=== PATIENT | male | born 1945 | race Caucasian/White ===

== ENCOUNTER → 2017-01-26 | Outpatient (CLI) | payer BC, OTHER ==
[2017-01-26 17:54] LABS: BLOOD UREA NITROGEN 17 mg/dl (7-18); BUN/CREATININE RATIO 18.1 (10-20); CALCIUM 8.7 mg/dl (8.5-10.1); CARBON DIOXIDE 27 mmol/L (21-32); CHLORIDE 108 mmol/L (98-107); CREATININE 0.94 mg/dl (0.60-1.40); GLUCOSE 103 mg/dl (70-99); SODIUM 142 mmol/L (136-145)
== END | disposition home or self-care (01) ==
LOC: C.LABMFLN 09:21
PROVIDERS: ATTEND Family Medicine
DX: Z00.00 Encounter for general adult medical examination without abnormal findings (principal); I10 Essential (primary) hypertension; N40.0 Benign prostatic hyperplasia without lower urinary tract symptoms

== ENCOUNTER → 2017-03-17 | Outpatient (CLI) | payer BC | END | disposition home or self-care (01) | LOC: C.PATHSPEC 17:48 | PROVIDERS: ATTEND Urology | DX: N40.2 Nodular prostate without lower urinary tract symptoms (principal) ==

== ENCOUNTER → 2018-03-11 | Outpatient (CLI) | payer OTHER, BC ==
[2018-03-11 12:54] LABS: BLOOD UREA NITROGEN 17 mg/dl (7-18); CALCIUM 8.6 mg/dl (8.5-10.1); CARBON DIOXIDE 25 mmol/L (21-32); GLUCOSE 97 mg/dl (70-99); POTASSIUM 4.3 mmol/L (3.5-5.1); SODIUM 141 mmol/L (136-145)
== END | disposition home or self-care (01) ==
LOC: C.LABMFLN 09:19
PROVIDERS: ATTEND Family Medicine
DX: N40.2 Nodular prostate without lower urinary tract symptoms (principal); I10 Essential (primary) hypertension

== ENCOUNTER 2020-08-27 10:29 | Observation (INO) ==
--- NOTE | 2020-07-26 08:48 | PAT Medication Instructions ---
Medication Instructions Date of Service July 26, 2020 Home Medications glucosamine sulfate 2KCl 1,000 mg tablet 1,000 mg PO BID amlodipine 5 mg PO QAM candesartan 16 mg PO HS finasteride 5 mg PO QAM Centrum Silver] 1 tab PO QAM tamsulosin 0.4 mg PO HS STOP taking 2 weeks before surgery (or as soon as possible if surgery is within 2 weeks) glucosamine sulfate 2KCl 1,000 mg tablet 1,000 mg PO BID DO NOT take the morning of surgery Centrum Silver] 1 tab PO QAM Take morning of surgery With a small sip of water, OTHERWISE NOTHING TO EAT OR DRINK AFTER MIDNIGHT: amlodipine 5 mg PO QAM finasteride 5 mg PO QAM Take evening before surgery candesartan 16 mg PO HS tamsulosin 0.4 mg PO HS Other Notes If you have any questions please call us at [phone] or [phone] or [phone] or [phone]
--- NOTE | 2020-07-27 11:49 | Anesthesiology Consultation ---
Date of Service July 27, 2020 Assessment & Plan (1) Encounter for pre-operative examination: - Per assessment on 07/27: Travel screen- Lives in [facility]. Travel to [facility] for doctor appt. Travel to [place] for [employer] 07/24- used PPE, + social distanced, followed COVID precaution guidelines (DOS greater than 1 month since travel). No further travel planned prior to surgery per patient. No known COVID-19 positive contacts or current COVID-19 related symptoms. Surgeon arranging preop COVID testing. Awaiting results. - Patient concern: patient does "not want to hear tools" during surgery. Chart Review Chart Review: Acceptable Risk for Surgery and Patient seen in Pre Admission Testing Teaching & Discussion Pre-Anesthesia Teaching/Discussion Notes: Instructed NPO after midnight before surgery,except medications with 15 cc of water. Medication instructions provided according to the PAT guidelines. History Surgery Operation Date: 08/27/20 13:00 Proposed Procedures p Left Total Knee Arthroplasty - Kristian Andrade MD Height/Weight Height: 5 ft 3 in Weight: 75.1 kg Allergies Allergy/AdvReac Type Severity Reaction Status Date / Time No Known Allergies Allergy Verified 07/24/20 08:05 Medications Home Medications Medication Instructions Recorded Confirmed Last Taken glucosamine sulfate 2KCl 1,000 mg 1,000 mg PO BID 12/16/19 07/24/20 Unknown tablet amlodipine 5 mg PO QAM 07/24/20 07/24/20 Unknown candesartan 16 mg PO HS 07/24/20 07/24/20 Unknown finasteride 5 mg PO QAM 07/24/20 07/24/20 Unknown [id number]-KF-lycopen-lutein 1 tab PO QAM 07/24/20 07/24/20 Unknown [Centrum Silver] tamsulosin 0.4 mg PO HS 07/24/20 07/24/20 Unknown Past Medical History Medical History BPH (benign prostatic hyperplasia) Hx of recurrent pneumonia 2017 and 2018, residual left lung scar tissue Hypertension Lumbar disc disease chronic back pain Osteoarthritis Exercise / Class Metabolic Activity III < 4 Walking/Shop/Light housework Past Family History Family History Grandmother (Maternal) Myocardial infarction Grandfather (Maternal) Myocardial infarction, Onset Age: 62 Uncle Prostate cancer Father Liver cancer Mother Rheumatic heart disease Past Surgical History Surgical History H/O prostate biopsy benign History of incision and drainage left leg abcess Hx of arthroscopy of knee left Hx of colonoscopy Hx of fracture of leg closed reduction Past Anesthesia History Other ("slow to wake") Patient: "slow to wake" Daughter: "slow to wake" Social History Smoking Status: Never smoker Do You Dip or Chew Tobacco: No Hx Alcohol Use: No Hx Substance Use: No substance use type: does not use Review of Systems Patient denies chest pain, shortness of breath, fever, chills, cough, wheezing, palpitations. Physical Exam Vital Signs VITALS BP 137/76 P 63 TEMP 98.1 SP02 95%RA RESP 16 PHYSICAL Full neck and c-spine range of motion. Full TMJ range of motion. TMD 3 finger breaths Mallampati Score 2 Dentition: missing molars Lungs: clear throughout to auscultation Cardiac: regular rate and rhythm, no murmurs noted Spine: normal Carotid arteries: negative bruit Extremities: no edema Testing Laboratory Results 07/27/20 12:21 07/27/20 12:21 PT 10.8 Seconds (9.0-12.0) 07/27/20 12:21 INR 1.0 (0.9-1.1) 07/27/20 12:21 APTT 26.7 Seconds (21.0-31.0) 07/27/20 12:21 Blood Type A Positive 07/27/20 12:21 Antibody Screen NEGATIVE 07/27/20 12:21 Electrocardiogram Date: 07/27/20 Findings: + SB @ (54) Chest X-Ray Date: 07/27/20 FINDINGS: The heart is enlarged. There is no failure. There is minor basilar interstitial thickening. There are left perihilar and upper lobe fibronodular opacities which are likely postinflammatory. There are no pleural effusions. IMPRESSION: Mild cardiomegaly. Old postinflammatory changes. No active disease in the chest.
[2020-07-27 12:38] LABS: Basophils # (auto) 0.03 K/uL (0-0.2); Basophils % (auto) 0.5 %; Eosinophils # (auto) 0.15 K/uL (0-0.5); Eosinophils % (auto) 2.5 %; Hematocrit (blood only) 39.5 % (42-52); Hemoglobin 14.2 g/dL (14.0-18.0); Immature Granulocytes # (auto) 0.01 K/uL (0.00-0.02); Immature Granulocytes % (auto) 0.2 %; Lymphocytes # (auto) 1.11 K/uL (1.2-3.4); Lymphocytes % (auto) 18.5 %; Mean Corpuscular Hemoglobin 31.6 pg (25-34); Mean Corpuscular Hgb Conc 35.9 g/dL (32-36); Mean Platelet Volume 9.9 fL (7.4-10.4); Monocytes # (auto) 0.67 K/uL (0.11-0.59); Monocytes % (auto) 11.2 %; Neutrophils # (auto) 4.03 K/uL (1.4-6.5); Neutrophils % (auto) 67.1 %; Platelet Count 182 K/uL (130-400); RDW Coefficient of Variation 12.4 % (11.5-14.5); RDW Standard Deviation 39.8 fL (36.4-46.3); Red Blood Count 4.49 M/uL (4.7-6.1)
--- NOTE | 2020-07-27 12:42 | XRay Report ---
XR chest Pre-admission PA/Lat CLINICAL HISTORY: Preoperative chest COMPARISON STUDY: No previous studies for comparison. FINDINGS: The heart is enlarged. There is no failure. There is minor basilar interstitial thickening. There are left perihilar and upper lobe fibronodular opacities which are likely postinflammatory. Th ere are no pleural effusions.[ IMPRESSION: 1. Mild cardiomegaly 2. Old postinflammatory changes 3. No active disease in the chest. ACT 112: Negative or not required by law. Electronically signed by: Lazaro Spencer M.D. 07/27/2020 12:40 PM
[2020-07-27 12:48] LABS: Partial Thromboplastin Time 26.7 Seconds (21.0-31.0); Prothrombin Time 10.8 Seconds (9.0-12.0)
[2020-07-27 13:53] LABS: BUN Creatinine Ratio 21.9 (10-20); Calcium 9.1 mg/dl (8.5-10.1); Creatinine Clr Calc Pharmacy 62.5 ml/min; Est GFR (Non-African American) 77.7; Potassium 4.2 mmol/L (3.5-5.1)
--- NOTE | 2020-07-29 07:45 | Electrocardiogram Report ---
Test Reason : Blood Pressure : / mmHG Vent. Rate : 054 BPM Atrial Rate : 054 BPM P-R Int : 200 ms QRS Dur : 080 ms QT Int : 404 ms P-R-T Axes : 067 027 040 degrees QTc Int : 383 ms Sinus bradycardia Otherwise normal ECG No previous ECGs available Confirmed by Leonardo Ford ([id number]) on 07/29/2020 7:45:40 AM Referred By: Kristian Andrade Confirmed By:Leonardo Ford
--- NOTE | 2020-08-25 11:34 | History and Physical Report ---
DATE OF ADMISSION: 08/27/2020 CHIEF COMPLAINT: Bilateral knee pain and discomfort, left side greater than right. HISTORY OF PRESENT ILLNESS: The patient is a 75-year-old male clemons who is referred by my partner, Dr. Coulter for treatment of his knees. He is here now specifically for his left knee. He has got a long history of bilateral knee pain and discomfort, left side greater than the right. He has failed conservative care. He has been through injection treatment. Describes pain mostly medial, but some global pain. The more he is up and on his knee, the more it hurts and hurts more as the day goes on. 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 He has nighttime pain. He would like to have his left knee fixed. PAST MEDICAL HISTORY: 1. Hypertension. 2. Back pain. PAST SURGICAL HISTORY: Include: 1. Prostate biopsy. 2. Left leg abscess in 1999. 3. Knee arthroscopy. 4. Colonoscopy. 5. Fracture, leg surgery. ALLERGIES: None. CURRENT MEDICINES: 1. Amlodipine 5 mg. 2. Candesartan 16 mg at nighttime. 3. Finasteride 5 mg. 4. Glucosamine. 5. Multivitamin. 6. Tamsulosin. SOCIAL HISTORY: A 75-year-old male. He is . Does not smoke. No significant alcohol intake. FAMILY HISTORY: Noncontributory. REVIEW OF HISTORY: Negative for diabetes, neurologic problem, vascular problems, bleeding disorders. He does have this history of abscess in the past, but nothing since then and no signs of infection since then. PHYSICAL EXAMINATION: GENERAL: Shows a healthy, pleasant male. He looks to be in pretty good health. HEENT: Benign. NECK: Supple, no lymphadenopathy. LUNGS: Clear to auscultation. HEART: Has a regular rate and rhythm. ABDOMEN: Soft, nontender, nondistended. EXTREMITIES: Grossly neurovascularly intact except as follows. Examination of the left knee reveals the patient ambulates independently. He has got varus alignment to his knee with a varus thrust with weightbearing. He is tender over the medial joint line. Small knee effusion. Range of motion about 10 degrees short of full extension to 120 degrees of flexion. There is no instability. No pain with hip motion. X-RAYS: X-rays of the left knee show advanced left knee DJD. He has got complete loss of his medial joint space. He has subchondral sclerosis. He has got osteophytes primarily in the medial compartment. He does have similar findings in the right knee, but less severe. ASSESSMENT: A 75-year-old male clemons with advanced bilateral knee degenerative joint disease, left side more than the right. He has failed conservative treatment and would like to have his left knee replaced. PLAN: We will take him to the operating room and do a left total knee replacement. The risks and benefits of this procedure were explained to the patient including but not limited to DVT, PE, , infection, neurological injury, vascular injury, bleeding problem, pain, limited range of motion, stiffness, failure to relieve symptoms, incomplete relief of symptoms, need for further surgery in future, fracture, leg length inequality, nerve palsy, incomplete relief of symptoms, need for blood transfusion, etc. The patient understands and desires to proceed. Informed consent was obtained. As far as discharge plans, he is planning to be discharged home using [facility] home health program. We will likely put some vancomycin in his cement due to his history of infection in the past.
[~2020-08-27 10:29] MED LIST: ACETAMINOPHEN 500 MG TAB PO SCH; BUPIVACAINE 0.5 % 5 MG/1 ML PF 10ML VIAL ONE; BUPIVACAINE LIPOSOME/PF 266 MG, BUPIVACAINE/EPINEPHRINE 50 ML, SODIUM CHLORIDE 0.9% 30 ... INFIL SCH; EPINEPHrine INJ 1 MG/ML AMP ONE; FAMOTIDINE 20 MG TAB PO SCH; GABAPENTIN 300 MG CAP PO SCH; LR 15ML/HR IV SCH; LR 500ML BOLUS, THEN 15ML/HR IV SCH; LR 60ML/HR IV SCH; METOCLOPRAMIDE HCL 10 MG TABLET PO SCH; ROPIVACAINE 0.5% 5 MG/ML 30 ML VIAL ONE; TRANEXAMIC ACID 1,000 MG **IV Intra-op IV SCH; ceFAZolin 2000MG 2,000 MG/15 ML SYR IV SCH
--- NOTE | 2020-08-27 11:01 | History & Physical Bridge Note ---
Date of Service August 27, 2020 History & Physical Bridge Note I have examined the patient, reviewed the History & Physical and in the interval since the performance of the History & Physical I have noted the following changes of clinical significance: no changes noted
[2020-08-27] MEDS ORDERED: MIDAZOLAM HCL 1 MG/ML 2ML VIAL ONE ×2 (11:48)
[2020-08-27] MEDS ORDERED: fentaNYL citrate 100 MCG/2 ML VIAL ONE (11:48)
[2020-08-27] MEDS ORDERED: ePHEDrine sulfate 50 MG/ML AMP IV PRN (12:06)
[2020-08-27] MEDS ORDERED: ONDANSETRON INJ 2 MG/ML 2 ML VIAL IV PRN ×2 (12:06→16:11)
[2020-08-27] MEDS ORDERED: ATROPINE SULFATE 0.1 MG/ML 10ML SYR IV PRN (12:06)
[2020-08-27] MEDS ORDERED: HYDROmorphone INJ 1 MG/ML SYRINGE IV PRN (12:06)
[2020-08-27] MEDS ORDERED: LABETALOL HCL IV 5 MG/ML 20ML IV PRN (12:06)
[2020-08-27] MEDS ORDERED: MEPERIDINE HCL 25 MG/ML CARP/VIAL IV PRN (12:06)
[2020-08-27] MEDS ORDERED: fentaNYL citrate 100 MCG/2 ML VIAL IV PRN (12:06)
[2020-08-27] MEDS ORDERED: PHENYLEPHRINE 100MCG/ML 5ML SYR IV PRN (12:06)
[2020-08-27] MEDS ORDERED: PROPOFOL IV EMULSION 10 MG/ML 20 ML VIAL IV ONE ×2 (12:10→13:37)
[2020-08-27] MEDS ORDERED: ePHEDrine sulfate 50 MG/ML AMP ONE (12:10)
[2020-08-27] MEDS ORDERED: BACITRACIN INJ 50,000 UNIT VIAL ONE (12:36)
[2020-08-27] MEDS ORDERED: BUPIVACAINE LIPOSOME 1.3% 266 MG/20 ML VIAL ONE (12:36)
[2020-08-27] MEDS ORDERED: SODIUM CHLORIDE 0.9% PF 50 ML VIAL ONE (12:36)
[2020-08-27] MEDS ORDERED: BUPIVACAINE 0.25% 30 ML VIAL ONE (12:37)
[2020-08-27] MEDS ORDERED: EPINEPHrine INJ 1 MG/ML AMP ONE (12:37)
[2020-08-27] MEDS ORDERED: VANCOMYCIN HCL 1000MG/20ML VIAL ONE (12:46)
[2020-08-27] MEDS ORDERED: ePHEDrine sulfate 50 MG/ML SYR ONE (13:37)
[2020-08-27] MEDS ORDERED: PHENYLEPHRINE 100MCG/ML 5ML SYR ONE (13:37)
[2020-08-27] MEDS ORDERED: ONDANSETRON INJ 2 MG/ML 2 ML VIAL ONE (13:37)
--- NOTE | 2020-08-27 14:43 | Post Operative Brief Note ---
PG Immediate Post Op with CF Date of Surgery August 27, 2020 Pre & Post Diagnosis Operation Date: 08/27/20 12:30 Pre-Op Diagnosis: Left Knee Degenerative Joint Disease Post-Op Diagnosis: Left Knee Degenerative Joint Disease I identified the patient and participated in the time-out.: Yes Procedure Operation Date: 08/27/20 12:30 Actual Procedures p Left Total Knee Arthroplasty(Left) - Kristian Andrade MD Surgeon Kristian Andrade MD Commercial Real Estate Agent Sam, PAC Estimated Blood Loss 50 Findings Consistent with Post-Op Diagnosis Fluids 1100 cc Specimens Specimen Description: Permanent Solution: A.) Left Knee Bone and Tissue Drains Michael Catheter (16 polish 10ml balloon) Anesthesia Type Spinal MAC Complications none Disposition Accompanied Patient To Recovery: No Disposition: Recovery Room
--- NOTE | 2020-08-27 15:09 | Anesthesiology Progress Note ---
Date of Service August 27, 2020 Anesthesia Post Procedure Vital Signs Vital Signs: Temp Pulse Pulse Resp BP Pulse Ox 08/27/20 15:05 88 16 123/80 94 08/27/20 14:55 74 18 119/63 98 08/27/20 14:49 36.9 C 84 18 110/63 95 08/27/20 10:57 36.6 C 66 20 137/86 97 Transfer of Care Handoff Completed per policy Notes Mental Status: alert / awake / arousable Patient Amnestic to Procedure: Yes Nausea / Vomiting: adequately controlled Pain: adequately controlled Airway Patency, RR, SpO2: stable & adequate BP & HR: stable & adequate Hydration State: stable & adequate Neuraxial Anesthesia: was administered and sensory block is resolving Anesthetic Complications: no major complications apparent and Pt Satisfied with anesthetic care
--- NOTE | 2020-08-27 15:09 | XRay Report ---
XR knee LT 1 or 2V routine CLINICAL HISTORY: Surgical Post Op COMPARISON: 01/26/2014 DISCUSSION: The study is mildly rotated. There are postsurgical changes of a total left knee arthropl asty. The femoral tibial components appear well seated. There are overlying skin aleida. There is ga s within the soft tissues consistent with recent surgery. THERE IS NO EVIDENCE FOR SOFT TISSUE SWELLI NG. IMPRESSION: Postsurgical changes of a total left knee arthroplasty. ACT 112: Negative or not required by law. Electronically signed by: Lazaro Spencer M.D. 08/27/2020 3:08 PM
[2020-08-27] MEDS ORDERED: ALUMINUM/MAGNESIUM SUSP 30 ML UDC PO PRN (16:11)
[2020-08-27] MEDS ORDERED: HYDROmorphone INJ 0.5 MG/0.5 ML SYR IV PRN (16:11)
[2020-08-27] MEDS ORDERED: MAGNESIUM HYDROXIDE SUSP 30 ML UDC PO PRN (16:11)
[2020-08-27] MEDS ORDERED: bisacodyL 10 MG SUPP PR PRN (16:11)
[2020-08-27] MEDS ORDERED: NALOXONE HCL 0.4 MG/1 ML VIAL/CARP IV PRN (16:11)
[2020-08-27] MEDS ORDERED: METOCLOPRAMIDE HCL INJ 5 MG/ML 2 ML VIAL IV PRN (16:11)
[2020-08-27] MEDS: KETOROLAC TROMETHAMINE 15 MG/ML VIAL IV SCH ×2 (18:07→23:40)
[2020-08-27] MEDS: ASCORBIC ACID 500 MG TAB PO SCH (18:09)
[2020-08-27] MEDS: FERROUS GLUCONATE 324 MG TAB PO SCH (18:09)
--- NOTE | 2020-08-27 18:12 | Operative Report ---
Post Operative Report Pre & Post Diagnosis Operation Date: 08/27/20 12:30 Pre-Op Diagnosis: Left Knee Degenerative Joint Disease Post-Op Diagnosis: Left Knee Degenerative Joint Disease I identified the patient and participated in the time-out.: Yes Procedure Operation Date: 08/27/20 12:30 Actual Procedures p Left Total Knee Arthroplasty(Left) - Kristian Andrade MD Surgeon Kristian Andrade MD [employer] Safety Program Coordinator Sam, PAC Estimated Blood Loss 50 Findings Consistent with Post-Op Diagnosis Operative findings revealed advanced left knee DJD with extensive grade 4 [id number] disease and eburnation of the medial compartment with a significant wear of the medial tibia. He had grade 4 changes the patellofemoral joint. The lateral compartment was pretty well-preserved. He had a fixed varus deformity t o his knee with a 10 degree flexion contracture. Fluids 1100 cc. Specimens None. Drains None. Anesthesia Type Spinal MAC Complications none Disposition Accompanied Patient To Recovery: No Disposition: Recovery Room Indications Patient is a 74-year-old clemons's had a long history of bilateral knee pain discomfort left side bit worse than the right. Is failed all conservative measures. It was really started to limit his activities and build ability to maintain an active lifestyle. Treatment. Description of Procedure Operative implants consist of: 1. Biomet Vanguard size 70 left posterior stabilized femoral component. 2. Biomet size 75 tibial tray. 3. 10 mm posterior stabilized polyethylene insert. 4. 31 x 8 all polypatella. The patient was taken to the operating identified and placed on the operating table supine position protectors were properly padded. IV antibiotics arrived by anesthesia team. A spinal anesthetic and abductor canal block had provided holding area. Michael catheter was placed in sterile fashion for the left thigh turn was then placed in the left lower extremities and prepped draped in usual sterile fashion. The left lower extremity was then elevated exsanguinated with use of an Esmarch interspace at 3 mmHg. An anterior approach to the left knee was then performed through longitudinal incisions over the patella. Sharp dissection was got through subcutaneous tissue down to the extensor mechanism. Medial parapatellar arthrotomy incision was made. Some subperiosteal dissection was carried out medially. I did do a pretty extensive posterior medial dissection due to his varus deformity and his flexion contracture. The fat pad was resected from each patella tendon. Lateral patellofemoral ligament was released. The patella was subluxated laterally and the knee was flexed. The osteophytes were taken off distal femur. The ACL and PCL were then released and distal femur the tibia subluxated anteriorly. The external tibial alignment jig was then placed in the interface the tibia and adjusted 14 mm medially. Proximal tibial cut was made to move out a millimeter bone from most efficient aspect medial till plateau. Some osteophytes were taken off medial and posterior medially. The tibia sized to a size 75. Attention drawn the femur. The distal femur exam with a sharp drop with intramedullary canal was suction. A left 6 degree valgus cutting guide was placed but distal femoral cutting block was pinned in place. Distal femoral cut was made to take an additional 3 mm bone off distal femur. Femur was then sized to a size 70. The AP cutting block was pinned parallel to the epicondylar axis which was 5 degrees of external rotation. The anterior cut, anterior chamfer, posterior cut, posterior chamfer cuts were made. Box cutting guide was placed in just slight lateral and the box cut was made. The knee was flexed. The remnants of medial lateral menisci were excised. The osteophytes were taken off the posterior aspect the femur. A trial femoral component was placed but the tibial tray was pinned in maximum external rotation and the drill and stem punch were used to create defect in proximal to for the tibial tray. Knee was then trialed the 10 mm insert fit most appropriately. Was little loose in flexion but the 12 mm insert was too tight in extension. We elect to place his insert. Attention drawn the patella. The patella was cleaned of all soft tissues. Patella thickness measured 23 mm in thickness cut down to 15 but was sized to a size 31 patella. Locals were drilled for 31 patella. The lateral osteophyte is moved. Patella button was placed. Knee was taken through range of motion patella tracked nicely with no thumbs test. Attention drawn to place the permanent components. All trial components were removed. Bone plug was placed in the disc femur limit blood loss put a double batch Palacos G cement was mixed. I did add an additional gram of vancomycin due to his history of an abscess in his leg in the past along with his previous surgery. A Biomet size 70 left posterior stabilized femoral component, size 75 tibial tray, 10 mm posterior box polyethylene insert, and a 31 x 8 all polypatella were then cemented in place. Knee was brought out in full extension of cement hardened. Final cement check was then performed. The pericapsular tissues were injected with total 100 cc of combination of 20 of Exparel, 30 cc normal saline, 50 cc of quarter percent Marcaine with epinephrine. Patient did receive 1 g tranexamic acid. The tourniquet was then let down for final turn time 55 minutes. Hemostasis assured use electrocautery. The wounds once again irrigated. Extensor mechanism closed with combination 1 PDS suture #1 Vicryl suture in [id number] fashion. Extensor mechanism checked found to be intact the subcutaneous tissue then closed with 2 Dexon suture in a buried interrupted fashion skin was closed skin aleida. Leg was then cleaned dried and sterile dressed with Xeroform, 4 x 4's, sterile cast padding, Abdirizak bandage applied. Patient then transferred to the recovery room in stable condition. The patient tolerated the procedure well and there were no complications. Gio Vargas, my physician blood bank assistant, was present for the entire procedure. His assistance was essential and required for appropriate patient positioning, prepping and draping, surgical exposure, performing the technical details of the operation, placement the implants, closure of the wound, and placement of the sterile bandage. I attest to the content of the Intraoperative Record and any orders documented therein. Any exceptions are noted below.
[2020-08-27] MEDS ORDERED: TRANEXAMIC ACID / 0.7% NACL 1,000 MG/100 ML BAG IV SCH (20:45)
[2020-08-27] MEDS: ceFAZolin 1000MG 1,000 MG/7.5 ML SYR IV SCH (21:05)
[2020-08-27] MEDS: ASPIRIN 81 MG ECTAB PO SCH (21:06)
[2020-08-27] MEDS: SENNA 8.6 MG TAB PO SCH (21:06)
[2020-08-27] MEDS: DOCUSATE SODIUM 100 MG CAP PO SCH (21:06)
[2020-08-27] MEDS: TAMSULOSIN HCL 0.4 MG CAP PO SCH (21:06)
[2020-08-27] MEDS: LOSARTAN POTASSIUM 50 MG TAB PO SCH (21:06)
[2020-08-27] MEDS: ACETAMINOPHEN 500 MG TAB PO SCH (21:07)
[2020-08-27] MEDS: SODIUM CHLORIDE 0.9% 1000ML 1,000 ML IV SCH ×2 (21:53→23:41)
[2020-08-28] MEDS: ceFAZolin 1000MG 1,000 MG/7.5 ML SYR IV SCH (05:57)
[2020-08-28] MEDS: KETOROLAC TROMETHAMINE 15 MG/ML VIAL IV SCH ×4 (05:57→23:53)
[2020-08-28] MEDS: ACETAMINOPHEN 500 MG TAB PO SCH ×3 (05:57→20:27)
[2020-08-28 07:09] LABS: Hematocrit (blood only) 34.3 % (42-52); Hemoglobin 12.1 g/dL (14.0-18.0); Mean Corpuscular Hemoglobin 31.5 pg (25-34); Mean Corpuscular Hgb Conc 35.3 g/dL (32-36); Mean Corpuscular Volume 89.3 fL (80-100); Mean Platelet Volume 10.1 fL (7.4-10.4); Platelet Count 156 K/uL (130-400); RDW Coefficient of Variation 12.6 % (11.5-14.5); RDW Standard Deviation 40.5 fL (36.4-46.3); Red Blood Count 3.84 M/uL (4.7-6.1); White Blood Count 7.42 K/uL (4.8-10.8)
[2020-08-28 07:41] LABS: BUN Creatinine Ratio 17.5 (10-20); Calcium 7.7 mg/dl (8.5-10.1); Creatinine Clr Calc Pharmacy 58.8 ml/min; Est GFR (African American) 97.9; Est GFR (Non-African American) 84.4; Potassium 4.3 mmol/L (3.5-5.1)
[2020-08-28] MEDS: ASCORBIC ACID 500 MG TAB PO SCH ×2 (08:19→17:22)
[2020-08-28] MEDS: ASPIRIN 81 MG ECTAB PO SCH ×2 (08:19→20:27)
[2020-08-28] MEDS: traMADol HCL 50 MG TABLET PO PRN ×3 (08:19→20:56)
[2020-08-28] MEDS: FERROUS GLUCONATE 324 MG TAB PO SCH ×2 (08:20→17:22)
[2020-08-28] MEDS: DOCUSATE SODIUM 100 MG CAP PO SCH ×2 (08:20→20:27)
[2020-08-28] MEDS: FINASTERIDE 5 MG TAB PO SCH (08:20)
[2020-08-28] MEDS: MULTIVITAMIN TAB PO SCH (08:20)
[2020-08-28] MEDS: amLODIPine BESYLATE 5 MG TAB PO SCH (08:20)
[2020-08-28] MEDS ORDERED: NON-FORMULARY MEDICATION (Multivit-Min-Fa-Lycopen-Lutein [Centrum Silver] 1 TAB) PO SCH (09:00)
--- NOTE | 2020-08-28 13:24 | Progress Notes ---
DATE: 08/28/2020 SUBJECTIVE: A 75-year-old gentleman, postoperative day 1 from a left knee replacement. He is doing pretty well. He did therapy and then got pretty dizzy and lightheaded while walking. They had to sit him down. He is feeling better now, but not quite back to normal. No chest pain or shortness of breath. Not feeling dizzy or lightheaded. OBJECTIVE: VITAL SIGNS: Temperature 36.6. Vital signs stable. GENERAL: Shows a pleasant, middle-aged male. He is sitting up in bed and eating his lunch and talking to his . He looks pretty comfortable. LUNGS: Clear to auscultation. HEART: Regular rate and rhythm. ABDOMEN: Soft, nontender, nondistended. EXTREMITIES: Grossly neurovascularly intact except as follows: Examination of the left leg reveals the leg to be well aligned. Dressing is clean, dry, and intact. He can dorsiflex and plantarflex his foot appropriately. He is neurologically intact. LABORATORIES: Hemoglobin 12.1. Hematocrit 34.3. Electrolytes stable. ASSESSMENT: A 75-year-old gentleman postop day 1 from left knee replacement, doing pretty well. He was walking around and got a bit lightheaded, which is not unusual. He feels better now and pretty much back to baseline. No cardiac symptoms. PLAN: 1. DVT prophylaxis including thigh-high TEDs, SCDs, and aspirin twice a day. 2. PT/OT. Weight bear as tolerated. Left total knee protocol. 3. Pain control, doing okay with current pain regimen. 4. Hypotension. He did have this episode of hypotension while walking and got dizzy and lightheaded. This is resolved. This will likely resolve over the next 24 hours. 5. Disposition. He is planning to be discharged to home with some home health once adequately recovered. We are going to keep him in the hospital today due to this hypotensive episode and make sure he gets good therapy tomorrow before discharge.
[2020-08-28] MEDS ORDERED: CANDESARTAN: ORDER AWAITING ACTION SCH (16:30)
[2020-08-28] MEDS: LOSARTAN POTASSIUM 50 MG TAB PO SCH (20:27)
[2020-08-28] MEDS: SENNA 8.6 MG TAB PO SCH (20:27)
[2020-08-28] MEDS: TAMSULOSIN HCL 0.4 MG CAP PO SCH (20:27)
[2020-08-28] MEDS ORDERED: LOSARTAN POTASSIUM 50 MG TAB PO SCH (21:00)
[2020-08-29] MEDS: KETOROLAC TROMETHAMINE 15 MG/ML VIAL IV SCH ×2 (05:50→11:21)
[2020-08-29] MEDS: ACETAMINOPHEN 500 MG TAB PO SCH ×2 (05:50→13:22)
[2020-08-29] MEDS: ASCORBIC ACID 500 MG TAB PO SCH (07:30)
[2020-08-29] MEDS: FERROUS GLUCONATE 324 MG TAB PO SCH (07:30)
[2020-08-29] MEDS: MULTIVITAMIN TAB PO SCH (07:31)
[2020-08-29] MEDS: ASPIRIN 81 MG ECTAB PO SCH (07:31)
[2020-08-29] MEDS: DOCUSATE SODIUM 100 MG CAP PO SCH (07:31)
[2020-08-29] MEDS: amLODIPine BESYLATE 5 MG TAB PO SCH (07:31)
[2020-08-29] MEDS: FINASTERIDE 5 MG TAB PO SCH (07:32)
--- NOTE | 2020-08-29 07:47 | Progress Notes ---
DATE: 08/29/2020 SUBJECTIVE: A 75-year-old gentleman postop day 2 from a left knee replacement. He is doing better this morning. Pain is controlled. No further dizziness or lightheadedness. Not nauseated. No chest pain or shortness of breath. OBJECTIVE: VITAL SIGNS: Temperature of 36.6. Vital signs stable. GENERAL: Shows a pleasant, middle-aged male. He is lying in bed and looks comfortable. EXTREMITIES: Examination of the left leg reveals the leg to be well aligned. Dressing is clean, dry, and intact. He can do a leg lift with a little bit of a knee bend. He can dorsiflex and plantarflex his foot appropriately. He is neurologically intact. ASSESSMENT: A 75-year-old gentleman postop day 2 from a left knee replacement, doing better. Hypotension, seems to be improved. No nausea. PLAN: 1. DVT prophylaxis including thigh-high TEDs, SCDs, and aspirin twice a day. 2. PT/OT. Weight bear as tolerated. Left total knee protocol. 3. Pain control, doing well with current pain regimen. 4. Disposition: Plan to discharge to home with some home health later today.
[2020-08-29] MEDS: traMADol HCL 50 MG TABLET PO PRN (09:31)
--- NOTE | 2020-08-30 16:28 | Discharge Summary ---
Date of Service August 30, 2020 Admission HPI Per Admitting Provider Documented in the H & P Admission Exam (Per Admitting) Constitutional Documented in the H & P Discharge Data Consultations 08/27/20 16:11 Consult Case Management - Discharge Planning Routine Procedures Performed Operation Date: 08/27/20 12:30 Actual Procedures p Left Total Knee Arthroplasty(Left) - Kristian Andrade MD Hospital Course (1) Status post total left knee replacement: This patient is a 75 year old male admitted on 08/27/20 and underwent total knee arthroplasty. He tolerated the procedure well and there were no complications. Transferred to the PACU post op and later to the orthopedic floor for further care. He was given ancef for antibiotic prophylaxis. He was also given SAVANAH stockings, SCDs, and aspirin for DVT prophylaxis. Hemoglobin, hematocrit, and vital signs were monitored during his hospital stay and remained stable. Did not require any blood transfusions. There were no complications during his hospital stay. By post op day #2 the patient was tolerating a regular diet, pain was reasonably controlled with oral pain medicine, and he was participating in physical therapy. On post op day #2 the patient was discharged home and set up with home health care. He was given printed discharge instructions including prescriptions for extra strength tylenol, aspirin, and tramadol. Continue physical therapy, weight bearing as tolerated. Continue SAVANAH stockings. Follow up approximately 2 weeks post op or sooner if there are problems or concerns. Coding Level of Care Code None Diagnoses Status post total left knee replacement Z96.652
== END 2020-08-29 13:39 | disposition home health service (06) ==
LOC: ASU 10:29 → 3E 10:29